=== PATIENT | female | born 1965 | race Caucasian/White ===

== ENCOUNTER → 2023-07-20 15:17 | Outpatient (REF) | payer BC, SELFPAY | LOC: WDC 15:17 | PROVIDERS: ATTENDING PHYSICIAN Family Medicine | DX: Z12.31 Encounter for screening mammogram for malignant neoplasm of breast (principal) | CPT/HCPCS: 77063; 77067 ==

== ENCOUNTER → 2024-07-24 12:45 | Outpatient (REF) | payer BC, SELFPAY | LOC: WDC 12:45 | PROVIDERS: ATTENDING PHYSICIAN Family Medicine | DX: Z12.31 Encounter for screening mammogram for malignant neoplasm of breast (principal) | CPT/HCPCS: 77063; 77067 ==